=== PATIENT | male | born 1970 | race Caucasian/White ===

== ENCOUNTER 2016-10-02 03:52 | Inpatient (IN) | payer OTHER ==
[~2016-10-02] VITALS: Ht 175.3 cm; Wt 78.0 kg
[~2016-10-02 03:52] MED LIST: BUPR75TA3; FLUO10CA26; LORA-258 PO
[2016-10-02] MEDS ORDERED: ASPIRIN 81 MG TAB.CHEW ONE (03:55)
--- NOTE | 2016-10-02 03:55 | NUR ---
PT A/OX4 C/O SOB AND CP X 2 HOURS, PT ADMITS TO HAVING [place] HALF A GRAM OF COKE AND DRINKING REDBULL, PT ON MONITOR, IV PLACED, LABS DRAWN, EKG DONE, MD IN ROOM, WILL CONTINUE TO MONITOR.
[2016-10-02] MEDS ORDERED: LABETALOL 20 MG/4 ML VIAL ONE (03:56)
[2016-10-02] MEDS ORDERED: NITROGLYCERIN PACKET 1 GM PACKET ONE (03:56)
[2016-10-02] MEDS ORDERED: LORAZEPAM INJ 2 MG/ML VIAL ONE (03:57)
[2016-10-02] MEDS ORDERED: ASPIRIN 81 MG TAB.CHEW PO ONE (04:00)
[2016-10-02] MEDS ORDERED: LORAZEPAM INJ 2 MG/ML VIAL IV ONE (04:00)
[2016-10-02] MEDS ORDERED: NITROGLYCERIN PACKET 1 GM PACKET TD ONE (04:00)
[2016-10-02] MEDS ORDERED: LABETALOL 20 MG/4 ML VIAL IV ONE (04:00)
[2016-10-02] MEDS ORDERED: HALOPERIDOL LACTATE INJ 5 MG/ML VIAL ONE (04:20)
[2016-10-02 04:24] LABS: BASOPHILS % (AUTO) 0.2 % (0.0-2.0); EOSINOPHILS % (AUTO) 0.2 % (0.0-6.0); HEMATOCRIT 43 % (39-51); HEMOGLOBIN 14.1 g/dL (13.5-17.5); LYMPHOCYTES # (AUTO) 0.9 /CMM (0.8-4.8); LYMPHOCYTES % (AUTO) 11.1 % (20.0-44.0); MEAN CORPUSCULAR HEMOGLOBIN 30 PG (26.0-33.0); MEAN CORPUSCULAR HGB CONC 33 g/dl (31.0-36.0); MEAN CORPUSCULAR VOLUME 91 fL (80-96); MONOCYTES # (AUTO) 0.5 /CMM (0.1-1.30); MONOCYTES % (AUTO) 5.9 % (2.0-12.0); NEUTROPHILS # (AUTO) 6.7 /CMM (1.8-8.9); NEUTROPHILS % (AUTO) 82.6 % (43.0-81.0); PLATELET COUNT (AUTO) 351 /CMM (150-450); RDW COEFFICIENT OF VARIATION 13.6 (11.5-15.0); WHITE BLOOD COUNT (AUTO) 8.1 K/uL (4.3-11.0)
[2016-10-02] MEDS ORDERED: HALOPERIDOL LACTATE INJ 5 MG/ML VIAL IV ONE (04:30)
[2016-10-02 04:33] LABS: CREATININE 1.1 mg/dL (0.6-1.3)
[2016-10-02 04:41] LABS: INR 0.92 (0.87-1.13); PROTHROMBIN TIME 9.8 SECS (9.5-12.7); TROPONIN I 0.08 ng/mL (0.00-0.056)
[2016-10-02 04:46] LABS: ALBUMIN 4.8 g/dL (3.4-5.0); BILIRUBIN,DIRECT 0.1 mg/dL (0.0-0.2); BILIRUBIN,TOTAL 0.5 mg/dL (0.2-1.0); TOTAL PROTEIN, SERUM 7.7 g/dL (6.4-8.2)
[2016-10-02] MEDS ORDERED: IV NS 0.9% 1,000 ML ONE (05:04)
[2016-10-02] MEDS ORDERED: IV SET PRIMARY 1 EA INFUS.SET MC ONE (05:04)
--- NOTE | 2016-10-02 05:09 | NUR ---
PT BP WAS LOW, MD MADE AWARE 1 LITER BOLUS ORDERED WILL CONTINUE TO MONITOR.
[2016-10-02 05:17] LABS: CANNABINOID, URINE POSITIVE (NEGATIVE); PHENCYCLIDINE SCREEN,URINE NEGATIVE (NEGATIVE)
[2016-10-02] MEDS ORDERED: IV NS 0.9% 1,000 ML BAG IV ONE (05:30)
[2016-10-02] MEDS ORDERED: ZOLPIDEM TARTRATE 5 MG TABLET PO PRN (05:30)
[2016-10-02] MEDS ORDERED: MAG HYDROX/AL HYDROX/SIMETH 30 ML UDC PO PRN (05:30)
[2016-10-02] MEDS ORDERED: NITROGLYCERIN 0.4 MG/TAB BOTTLE SL PRN (05:30)
[2016-10-02] MEDS ORDERED: ONDANSETRON HCL/PF 4 MG/2 ML VIAL IVP PRN (05:30)
[2016-10-02] MEDS ORDERED: MAGNESIUM HYDROXIDE 30 ML UDC PO PRN (05:30)
[2016-10-02] MEDS ORDERED: ACETAMINOPHEN 650 MG/SUPP.RECT RC PRN (05:30)
[2016-10-02 05:42] LABS: MAGNESIUM 1.7 mg/dL (1.8-2.4); PHOSPHORUS 2.3 mg/dL (2.5-4.9)
--- NOTE | 2016-10-02 06:01 | NUR ---
BACK WINDER NOTE PATIENT ON TELE MONITOR. SR 81. RECEIVED PATIENT VIA [facility] FROM ER. VERY SLEEPY. EASY TO AROUSE. NO DISCOMFORT OR PAIN AT THIS TIME. PATIENT WAS ABLE TO AMBULATE FROM [place] TO BED. IV SITE TO LFA INTACT WITH NO REDNESS OR SWELLING NOTED. NS BOLUS RUNNING WELL. BLOOD PRESSURE IS 88/60. MD AWARE. ATTEMPTED TO ORIENT PATIENT TO ROOM AND TO UNIT. REINFORCEMENT NEEDED. ALL BELONGINGS CHECKED AND ACCOUNTED FOR. SKIN CHECK DONE. NO BREAKDOWN OR BRUISING NOTED. AWAITING MD ORDERS. BED LOCKED AND IN LOWEST POSITION. SIDE RAILS UP, CALL LIGHT WITHIN REACH. WILL CONTINUE TO MONITOR.
[2016-10-02 06:15] VITALS: BP 86/59
[2016-10-02] MEDS ORDERED: PANTOPRAZOLE 40 MG TABLET.DR PO SCH (07:30)
[2016-10-02 08:00] VITALS: BP 95/57
--- NOTE | 2016-10-02 08:00 | NUR ---
KILN TENDER AM NOTES PATIENT ON TELE MONITOR. SR 67. RECEIVED PATIENT ALERT AND ORIENTED X3.VERY SLEEPY. EASY TO AROUSE. NO DISCOMFORT OR PAIN AT THIS TIME. PATIENT PULLED OUT HIS IV H/L.WILL REINSERT A NEW ONE.BED LOCKED AND IN LOWEST POSITION. SIDE RAILS UP, CALL LIGHT WITHIN REACH. WILL CONTINUE TO MONITOR.
[2016-10-02] MEDS ORDERED: METOPROLOL TARTRATE 25 MG TABLET PO SCH (09:00)
[2016-10-02] MEDS ORDERED: ASPIRIN 325 MG TABLET PO SCH (09:00)
[2016-10-02] MEDS ORDERED: QUET25TA PO (09:22)
[2016-10-02] MEDS ORDERED: FLUO40CA8 PO (09:22)
[2016-10-02] MEDS ORDERED: TADA5TAB2 PO (09:22)
[2016-10-02] MEDS ORDERED: BUPR-96 PO (09:22)
[2016-10-02] MEDS ORDERED: Magnesium 1GM/D5W 100ML PREMIX 100 ML IV SCH (11:26)
--- NOTE | 2016-10-02 11:48 | NUR ---
[facility] Per H&P report, patient arrived in a hyperventilation state, and admitted to snorting cocaine and then drinking 2 large red bulls despite a history of anxiety syndrome and now has chest pain, palpitations and anxiety attack. His chest pain is constant, sharp, sudden in onset, nonradiating, left-sided, and severe. He repeatedly requests injections of Ativan. SW attempted to meet with pt. bedside for a social service consult, however pt. is asleep. SW attempted to wake pt. up but was unable to do so. SW to follow up when pt. is awake and coherent.
[2016-10-02 12:00] VITALS: BP 97/56
[2016-10-02] MEDS ORDERED: MAGNESIUM OXIDE 400 MG TABLET PO SCH (12:30)
[2016-10-02] MEDS ORDERED: K PHOS NEUTRAL 250 MG TABLET PO ONE (13:14)
[2016-10-02 13:35] VITALS: BP 97/56
[2016-10-02 16:00] VITALS: BP 103/60
--- NOTE | 2016-10-02 16:02 | NUR ---
EXPLAINED CT ANGIO PROCEDURE TO THE PT TO BE DONE TOMORROW BUT PT INSISTS TO GO HOME EVEN IF IT'S AMA DUE TO EAGERNESS TO WORK TOMORROW.EXPLAINED THE RISKS AND BENEFITS BUT PT INSISTS TO GO AMA.DR LILIANA PARRA AWARE.
[2016-10-02 16:42] VITALS: BP 103/60
--- NOTE | 2016-10-02 17:50 | NUR ---
PT WENT AMA INSPITE OF EXPLAINING THE RISKS AND BENEFITS.AMA DISCHARGE PAPERS SIGNED BY PT.
--- NOTE | 2016-10-02 18:22 | NUR ---
INCIDENT REPORT DONE UNIQUE ID [id number]
== END 2016-10-02 17:53 | disposition left against medical advice (07) | DRG 917 ==
LOC: ER 03:55 → TELE 05:03
PROVIDERS: ADMIT Nurse Practitioner Acute Care; ATTEND Nurse Practitioner Acute Care
DX: T40.5X1A Poisoning by cocaine, accidental (unintentional), initial encounter (principal); I21.4 Non-ST elevation (NSTEMI) myocardial infarction; F41.9 Anxiety disorder, unspecified; E83.42 Hypomagnesemia; F14.188 Cocaine abuse with other cocaine-induced disorder; Y92.009 Unspecified place in unspecified non-institutional (private) residence as the place of occurrence of the external cause
CPT/HCPCS: 36415; 71010-TC; 80048-TC; 80061-TC; 80076-TC; 80305; 83735-TC; 83880; 84100-TC; 84484-TC; 85025-TC; 85730-TC; 87081-TC; 93307-TC; A4606; J1630; J2060; J3490; J7030; Z7610